=== PATIENT | female | born 1985 | race African-American/Black ===

== ENCOUNTER 2020-05-01 09:38 | Emergency (ER) | payer SELFPAY ==
--- NOTE | 2020-05-01 09:45 | EDM.PDOC ---
ED HPI GENERAL MEDICAL PROBLEM - General Chief Complaint: Gastrointestinal Problem Stated Complaint: 17 WEEKS PREG HAVING A LOT OF PAIN Time Seen by Provider: 05/01/20 10:06 Source of Information: Reports: Patient History Limitations: Reports: No Limitations - History of Present Illness INITIAL COMMENTS - FREE TEXT/NARRATIVE: 34 old female 1 para 0 17 weeks presenting this afternoon with 3 days of nausea and vomiting with suprapubic pain and mild burning with urination. Denies any fevers, chills, body aches. Denies any vaginal discharge or bleeding. Has not used any [id number] medication. Last full meal was yesterday morning. Patient's OB physician is Dr. Phan. Denies any overt sick contacts at home. Denies Rupture of membranes (denies gush of fluid) FHR :140 abdominal pain Pain Score (Numeric/FACES): 4 - Related Data Allergies Allergy/AdvReac Type Severity Reaction Status Date / Time No Known Allergies Allergy Verified 05/01/20 10:02 Home Meds: Home Meds Indomethacin 50 mg PO Q6H 2 Days #8 capsule 05/01/20 [Rx] Metoclopramide HCl [Reglan] 5 mg PO Q8HR 3 Days #6 tablet 05/01/20 [Rx] cephALEXin [Keflex] 500 mg PO Q6H 5 Days #20 cap 05/01/20 [Rx] ED ROS GENERAL - Review of Systems Review Of Systems: See Below Constitutional: Denies: Fever, Chills HEENT: Reports: No Symptoms Respiratory: Reports: No Symptoms Cardiovascular: Reports: No Symptoms. Denies: Chest Pain Endocrine: Denies: No Symptoms GI/Abdominal: Reports: Abdominal Pain, Nausea, Vomiting. Denies: Constipation, Diarrhea : Reports: Dysuria. Denies: Flank Pain, Frequency, Hematuria, Incontinence Musculoskeletal: Reports: No Symptoms, Muscle Stiffness Neurological: Reports: No Symptoms Psychiatric: Reports: No Symptoms Hematologic/Lymphatic: Reports: No Symptoms ED EXAM, GI/ABD - Physical Exam Exam: See Below (FHR) General Appearance: Alert Throat/Mouth: Normal Inspection Head: Atraumatic, Normocephalic Respiratory/Chest: No Respiratory Distress, Lungs Clear, Normal Breath Sounds Cardiovascular: Normal Peripheral Pulses, Other (Mildly tachycardic; regualr rhythm ) GI/Abdominal Exam: Other (Suprapubic tenderness; no flank tenderness. Gravid belly consistent w. 17 weeks; cervix closed on examination ) Back Exam: Normal Inspection Neurological: Alert, Oriented Psychiatric: Normal Affect, Normal Mood Skin Exam: Warm, Dry, Intact Course - Vital Signs Text/Narrative:: Provided 2 Liter bolus 2 liter NS FHR: 140 UA + for l. esterase/ bacteria; initiated on Rocephin Stat US ordered to confirm gestation age Confirming +fibroids Discussed case w. solutions developer OB Dr Alaniz: mentioned since fibroids are source of pain and at 17 weeks ; is most likely to become non-viable . Recommed control for pain : tordol 60 once; send home with Indomethacin 50 q6-8 hrs PRN. Tylenol PRN q 6hrs. Reglan for Nausea control. ! gram of Rocephin given Will send home with cephelexin per on-call OB physician. Last Recorded V/S: Last Vital Signs Temp 98.8 F 05/01/20 09:56 Pulse 112 H 05/01/20 09:56 Resp 17 05/01/20 09:56 BP 119/80 05/01/20 09:56 Pulse Ox 96 05/01/20 09:56 - Orders/Labs/Meds Orders: Active Orders 24 hr Category Date Time Status OB Ltd 1 or More Fetus [US] Stat Exams 05/01/20 10:54 Taken Lactated Ringers [Ringers, Lactated] 1,000 ml Med 05/01/20 11:01 Active IV .BOLUS Medication Orders Lactated Ringer's (Ringers, Lactated) 1,000 mls @ 999 drops/hr IV .BOLUS STA Stop: 05/02/20 02:01 Last Admin: 05/01/20 11:08 Dose: 999 drops/hr Documented by: [email or web address] Labs: Laboratory Tests 05/01/20 05/01/20 05/01/20 Range/Units 10:20 10:20 10:20 WBC 12.11 H (4.0-11.0) K/uL RBC 4.52 (4.30-5.90) M/uL Hgb 11.5 L (12.0-16.0) g/dL Hct 34.5 L (36.0-46.0) % MCV 76.3 L (80.0-98.0) fL MCH 25.4 L (27.0-32.0) pg MCHC 33.3 (31.0-37.0) g/dL RDW Std Deviation 37.4 (28.0-62.0) fl RDW Coeff of Archie 13 (11.0-15.0) % Plt Count 197 (150-400) K/uL MPV 10.70 (7.40-12.00) fL Neut % (Auto) 80.0 (48.0-80.0) % Lymph % (Auto) 10.6 L (16.0-40.0) % [place] % (Auto) 9.0 (0.0-15.0) % Eos % (Auto) 0.2 (0.0-7.0) % Baso % (Auto) 0.2 (0.0-1.5) % Neut # (Auto) 9.7 H (1.4-5.7) K/uL Lymph # (Auto) 1.3 (0.6-2.4) K/uL [place] # (Auto) 1.1 H (0.0-0.8) K/uL Eos # (Auto) 0.0 (0.0-0.7) K/uL Baso # (Auto) 0.0 (0.0-0.1) K/uL Nucleated RBC % 0.0 /100WBC Nucleated RBCs # 0 K/uL Sodium 134 L (136-145) mmol/L Potassium 3.4 L (3.5-5.1) mmol/L Chloride 98 (98-107) mmol/L Carbon Dioxide 25.7 (21.0-32.0) mmol/L BUN 5 L (7.0-18.0) mg/dL Creatinine 0.7 (0.6-1.0) mg/dL Est Cr Clr Drug Dosing 103.82 mL/min Estimated GFR (MDRD) > 60.0 ml/min Glucose 112 H (74-106) mg/dL Calcium 9.5 (8.5-10.1) mg/dL Total Bilirubin 0.8 (0.2-1.0) mg/dL AST 24 (15-37) IU/L ALT 21 (14-63) IU/L Alkaline Phosphatase 78 (46-116) U/L Total Protein 7.8 (6.4-8.2) g/dL Albumin 3.2 L (3.4-5.0) g/dL Globulin 4.6 H (2.6-4.0) g/dL Albumin/Globulin Ratio 0.7 L (0.9-1.6) Urine Color YELLOW Urine Appearance SLT CLOUDY Urine pH 6.5 (5.0-8.0) Ur Specific [place] 1.020 (1.001-1.035) Urine Protein NEGATIVE (NEGATIVE) mg/dL Urine Glucose (UA) NEGATIVE (NEGATIVE) mg/dL Urine Ketones NEGATIVE (NEGATIVE) mg/dL Urine Occult Blood LARGE H (NEGATIVE) Urine Nitrite NEGATIVE (NEGATIVE) Urine Bilirubin NEGATIVE (NEGATIVE) Urine Urobilinogen 1.0 (<2.0) EU/dL Ur Leukocyte Esterase MODERATE H (NEGATIVE) Urine RBC 90-100 (0-2/HPF) Urine WBC 3-5 (0-5/HPF) Ur Epithelial Cells FEW (NONE-FEW) Urine Bacteria FEW (NEGATIVE) Meds: Medications Generic Name Dose Route Start Last Admin Trade Name Freq PRN Reason Stop Dose Admin Lactated Ringer's 1,000 mls @ 999 drops/hr 05/01/20 11:01 05/01/20 11:08 Ringers, Lactated IV 05/02/20 02:01 999 drops/hr .BOLUS STA Administration Discontinued Medications Generic Name Dose Route Start Last Admin Trade Name Freq PRN Reason Stop Dose Admin Acetaminophen 1,000 mg 05/01/20 12:08 05/01/20 12:17 Tylenol Extra Strength PO 05/01/20 12:09 1,000 mg ONETIME ONE Administration Ceftriaxone Sodium 1 gm 05/01/20 10:48 05/01/20 11:12 Rocephin IM 05/01/20 10:49 Not Given ONETIME ONE Sodium Chloride 1,000 mls @ 999 mls/hr 05/01/20 10:08 05/01/20 10:24 Normal Saline IV 05/01/20 11:08 999 mls/hr STAT ONE Administration Sodium Chloride 1,000 mls @ 999 mls/hr 05/01/20 10:41 05/01/20 11:12 Normal Saline IV 05/01/20 11:41 Not Given STAT ONE Ceftriaxone Sodium/Dextrose 1 50 mls @ 100 mls/hr 05/01/20 10:53 05/01/20 10:55 gm/ Premix IV 05/01/20 11:22 100 mls/hr ONETIME ONE Administration Ketorolac Tromethamine 60 mg 05/01/20 12:58 05/01/20 13:10 Toradol IVPUSH 05/01/20 12:59 Not Given ONETIME ONE Ketorolac Tromethamine 60 mg 05/01/20 13:10 05/01/20 13:13 Toradol IM 05/01/20 13:11 60 mg ONETIME ONE Administration Metoclopramide HCl 5 mg 05/01/20 12:58 05/01/20 13:12 Reglan IVPUSH 05/01/20 12:59 5 mg ONETIME ONE Administration Departure - Departure Time of Disposition: 13:12 Disposition: Home, Self-Care 01 Clinical Impression: UTI (urinary tract infection), Uterine fibroids affecting - Discharge Information Prescriptions: Indomethacin 50 mg PO Q6H 2 Days #8 capsule cephALEXin [Keflex] 500 mg PO Q6H 5 Days #20 cap Metoclopramide HCl [Reglan] 5 mg PO Q8HR 3 Days #6 tablet Instructions: Urinary Tract Infection, Adult, [id number], Dehydration, Adult, [id number] Referrals: Laci Phan MD [Primary Care Provider] - Forms: ED Department Discharge Additional Instructions: The following information is given to patients seen in the emergency department who are being discharged to home. This information is to outline your options for follow-up care. We provide all patients seen in our emergency department with a follow-up referral. The need for follow-up, as well as the timing and circumstances, are variable depending upon the specifics of your emergency department visit. If you don't have a primary care physician on staff, we will provide you with a referral. We always advise you to contact your personal physician following an emergency department visit to inform them of the circumstance of the visit and for follow-up with them and/or the need for any referrals to a consulting specialist. The emergency department will also refer you to a specialist when appropriate. This referral assures that you have the opportunity for follow-up care with a specialist. All of these measure are taken in an effort to provide you with optimal care, which includes your follow-up. Under all circumstances we always encourage you to contact your private physician who remains a resource for coordinating your care. When calling for follow-up care, please make the office aware that this follow-up is from your recent emergency room visit. If for any reason you are refused follow-up, please contact the [facility] Emergency Department at and asked to speak to the emergency department charge nurse. [facility] [address] [place] [address] [facility] [address] [place] [address] Care Plan Goals: Please follow up with your OB physician in the near future. If pain becomes intolerable or you notice increasing contractions, bleeding, discharge ; return to ED immediately. Sepsis Event Note (ED) - Focused Exam Vital Signs: Vital Signs Temp Pulse Resp BP Pulse Ox 05/01/20 09:56 98.8 F 112 H 17 119/80 96 - My Orders Last 24 Hours: My Active Orders 05/01/20 10:54 OB Ltd 1 or More Fetus [US] Stat 05/01/20 11:01 Lactated Ringers [Ringers, Lactated] 1,000 ml IV .BOLUS - Assessment/Plan Last 24 Hours: My Active Orders 05/01/20 10:54 OB Ltd 1 or More Fetus [US] Stat 05/01/20 11:01 Lactated Ringers [Ringers, Lactated] 1,000 ml IV .BOLUS
[2020-05-01] MEDS ORDERED: Sodium Chloride 0.9% 1,000 ML IV ONE ×2 (10:08→10:41)
[2020-05-01] MEDS ORDERED: cefTRIAXone 1 GM Vial IM ONE (10:48)
[2020-05-01 10:49] LABS: BLOOD UREA NITROGEN,BUN 5 mg/dL (7.0-18.0); CARBON DIOXIDE,CO2 25.7 mmol/L (21.0-32.0); CHLORIDE,CL 98 mmol/L (98-107); GLUCOSE RANDOM 112 mg/dL (74-106); POTASSIUM,K 3.4 mmol/L (3.5-5.1); SODIUM,NA 134 mmol/L (136-145)
[2020-05-01] MEDS ORDERED: cefTRIAXone 1 GM in Premix Bag 1 BAG IV ONE (10:53)
[2020-05-01] MEDS ORDERED: Lactated Ringers 1,000 ML IV STA (11:01)
[2020-05-01] MEDS ORDERED: Acetaminophen 500 MG Tab PO ONE (12:08)
[2020-05-01] MEDS ORDERED: Metoclopramide 10 MG/2 ML SDV IVPUSH ONE (12:58)
[2020-05-01] MEDS ORDERED: Ketorolac 30 MG/ML SDV IVPUSH ONE (12:58)
[2020-05-01] MEDS ORDERED: Ketorolac 60 MG/2 ML SDV IM ONE (13:10)
--- NOTE | 2020-05-01 13:41 | US ---
Obstetrical ultrasound: Multiple real-time images were obtained transabdominally. Comparison: No previous study for current . Dates: Current ultrasound: WINIFRED 10/04/20, gestational age 17 weeks 5 days presentation: Breech Placenta: Anterior with no findings of placenta previa Amniotic fluid: MOLLY 10.2 cm Other findings: At least 4 fibroids are identified. Fibroids have maximal measurements of 8.2 cm, 7.7 cm, 4.3 cm in 4.8 cm Measurements: BPD: 3.73 cm - 17 weeks 3 days Head circumference: 14.38 cm - 17 weeks 4 days Abdominal circumference: 13.37 cm - 18 weeks 6 days Femur length: 2.40 cm - 17 weeks 2 days Estimated weight: 220 g (0 lbs. 8 oz. Heart rate: 169 bpm Impression: 1. Single intrauterine fetus currently breech in presentation. Dates as noted above. 2. Multiple uterine fibroids are seen. 3. No other complicating process is seen by ultrasound exam. Diagnostic code #3 This report was dictated in MDT
== END 2020-05-01 13:44 | disposition home or self-care (01) ==
LOC: MW.ED 09:38
DX: O34.12 Maternal care for benign tumor of corpus uteri, second trimester (principal); O23.42 Unspecified infection of urinary tract in pregnancy, second trimester; Z3A.17 17 weeks gestation of pregnancy
CPT/HCPCS: 36415; 76815; 80053; 81001; 85025; 96361; 96372; 96374; 96375; 99284; A9270; J0696; J1885; J2765; J7030; J7120

== ENCOUNTER 2020-09-01 18:50 | Observation (INO) | payer SELFPAY ==
[2020-09-01] MEDS ORDERED: Acetaminophen 500 MG Tab PO ONE (19:53)
[2020-09-01] MEDS ORDERED: Lactated Ringers 1,000 ML IV SCH (20:00)
[2020-09-01] MEDS: Lactated Ringers 1,000 ML IV SCH ×2 (20:18→20:54)
[2020-09-01] MEDS ORDERED: Butorphanol 1 MG/ML SDV IM ONE (21:07)
[2020-09-01] MEDS ORDERED: Promethazine 25 MG/ML SDV IM ONE (21:08)
--- NOTE | 2020-09-01 23:01 | US ---
INDICATION: contractions TECHNIQUE: Ultrasound OB pelvis transabdominal. Real-time hopkins-scale imaging of the fetus was performed as well as color Doppler and spectral Doppler analysis of the umbilical artery. COMPARISON: Obstetric ultrasound 08/18/2020 FINDINGS: Clinical Age: 35 weeks 2 days (WINIFRED 12/29/2019) based on LMP. Sonographic imaging demonstrates a single living intrauterine gestation. Fetus demonstrates a regular cardiac rate of 163 beats per minute. Fetus has a cephalic orientation. The placenta lies anterior without evidence of placenta previa. Amniotic fluid volume appears low normal. Single deepest vertical pocket: 2.8 cm. The following biometric measurements were obtained: Biparietal diameter: 8.5 centimeters corresponding to 34 weeks 3 days. Head circumference: 30.7 centimeters corresponding to 34 weeks 2 days. Abdominal circumference: 30.1 centimeters corresponding to 34 weeks 1 day. Femur length: 6.7 centimeters corresponded 34 weeks 5 days. The weight is estimated at 2391 grams, the 21st percentile. Moderate maternal right hydronephrosis. Mild maternal left hydronephrosis. Likely intramural to subserosal fibroid on the right measuring 10.7 centimeters. IMPRESSION.: 1. Single live intrauterine gestation with a clinical age of 35 weeks 2 days in vertex position. 2. Estimated weight of 2391 grams which is at the 21st percentile for age. 3. Maximal vertical pocket 2.8 centimeters. 4. Anterior placenta without perigestational bleed. Dictated by Jed Mclean MD @ Sep 01 2020 10:54PM Signed by Dr. Jed Mclean @ Sep 01 2020 11:00PM
[2020-09-01] MEDS ORDERED: Promethazine 25 MG/ML SDV ONE (23:26)
[2020-09-01] MEDS ORDERED: Butorphanol 1 MG/ML SDV ONE (23:26)
[2020-09-02] MEDS ORDERED: Butorphanol 1 MG/ML SDV IM ONE (02:57)
[2020-09-02 03:39] LABS: BLOOD UREA NITROGEN,BUN 5 mg/dL (7.0-18.0); CARBON DIOXIDE,CO2 25.1 mmol/L (21.0-32.0); CHLORIDE,CL 107 mmol/L (98-107); GLUCOSE RANDOM 98 mg/dL (74-106); POTASSIUM,K 3.6 mmol/L (3.5-5.1); SODIUM,NA 140 mmol/L (136-145)
--- NOTE | 2020-09-02 08:53 | PCM.LDHP ---
L&D History of Present Illness - General Date of Service: 09/02/20 Admit Problem/Dx: Patient Status Order with Admit Dx/Problem 09/01/20 18:45 Patient Status [ADT] Routine 09/01/20 21:05 Patient Status [ADT] Routine Admission Diagnosis/Problem Admission Diagnosis/Problem Source of Information: Patient History Limitations: Reports: No Limitations - History of Present Illness Introduction:: Patient is 35/3 week who presents again after being triaged on L&D during the day 09/01/20 for painful contractions. Received 2 doses of terbutaline and iv fluids. Has received steroids for FLM a couple weeks ago. She was feeling better and then allowed to go home. Within 3 hours returned to L&D with painful contractions. She denies vaginal bleeding. Cervix has not changed on exam, still 3 cm. Notes good movement. Denies feve or chills. Denies leakage of fluid. Pain does not correlate with the mild irregular contractions. Pain Score: 7 - Related Data Allergies/Adverse Reactions: Allergies Allergy/AdvReac Type Severity Reaction Status Date / Time No Known Allergies Allergy Verified 08/18/20 08:48 Home Medications: Home Meds Iron 1 tab PO DAILY 08/18/20 [History] Pnv No.95/Ferrous Fum/Folic AC [ Vitamin Tablet] 1 tab PO DAILY 09/01/20 [History] Past Medical History - Past Health History Medical/Surgical History: Denies Medical/Surgical History [employer] History: Reports: Other OB/BYN History: First - Patient states she is 17weeks. Social & Family History - Family History Family Medical History: Noncontributory - Tobacco Use Tobacco Use Status *Q: Never Tobacco User Second Hand Smoke Exposure: No - Recreational Drug Use Recreational Drug Use: No H&P Review of Systems - Review of Systems: Review Of Systems: See Below General: Reports: No Symptoms HEENT: Reports: No Symptoms Pulmonary: Reports: No Symptoms Cardiovascular: Reports: No Symptoms Gastrointestinal: Reports: Abdominal Pain Genitourinary: Reports: No Symptoms Musculoskeletal: Reports: No Symptoms Skin: Reports: No Symptoms Psychiatric: Reports: No Symptoms Neurological: Reports: No Symptoms Hematologic/Lymphatic: Reports: No Symptoms Immunologic: Reports: No Symptoms L&D Exam - Exam Exam: See Below - Vital Signs Weight: 63.503 kg - OB Specific Contraction Intensity: Mild Movement: Active Heart Tones: Present Heart Tones per Min: 140 Heart Rate (FHR) Variability: Moderate (6-25 bmp) - Leggett Score Leggett Score Effacement: 31-50% Leggett Score Dilation: 3-4 cm - Exam General: Alert, Oriented GI/Abdominal Exam: Normal Bowel Sounds, Soft, Non-Tender. No: Rebound Back Exam: CVA Tenderness (R). No: CVA Tenderness (L) Extremities: Pedal Edema (trace). No: Dany's Sign Skin: Warm, Dry, Intact Psychiatric: Alert, Normal Affect, Normal Mood - Patient Data Lab Results Last 24 hrs: Laboratory Results - last 24 hr 09/02/20 09/02/20 09/02/20 Range/Units 03:05 03:05 07:15 WBC 7.10 (4.0-11.0) K/uL RBC 4.24 L (4.30-5.90) M/uL Hgb 11.2 L (12.0-16.0) g/dL Hct 33.6 L (36.0-46.0) % MCV 79.2 L (80.0-98.0) fL MCH 26.4 L (27.0-32.0) pg MCHC 33.3 (31.0-37.0) g/dL RDW Std Deviation 49.1 (28.0-62.0) fl RDW Coeff of Archie 17 H (11.0-15.0) % Plt Count 132 L (150-400) K/uL MPV 10.60 (7.40-12.00) fL Neut % (Auto) 64.6 (48.0-80.0) % Lymph % (Auto) 20.3 (16.0-40.0) % [place] % (Auto) 13.5 (0.0-15.0) % Eos % (Auto) 1.5 (0.0-7.0) % Baso % (Auto) 0.1 (0.0-1.5) % Neut # (Auto) 4.6 (1.4-5.7) K/uL Lymph # (Auto) 1.4 (0.6-2.4) K/uL [place] # (Auto) 1.0 H (0.0-0.8) K/uL Eos # (Auto) 0.1 (0.0-0.7) K/uL Baso # (Auto) 0.0 (0.0-0.1) K/uL Nucleated RBC % 0.0 /100WBC Nucleated RBCs # 0 K/uL Sodium 140 (136-145) mmol/L Potassium 3.6 (3.5-5.1) mmol/L Chloride 107 (98-107) mmol/L Carbon Dioxide 25.1 (21.0-32.0) mmol/L BUN 5 L (7.0-18.0) mg/dL Creatinine 0.7 (0.6-1.0) mg/dL Est Cr Clr Drug Dosing 102.86 mL/min Estimated GFR (MDRD) > 60.0 ml/min Glucose 98 (74-106) mg/dL Calcium 8.9 (8.5-10.1) mg/dL Total Bilirubin 0.8 (0.2-1.0) mg/dL AST 18 (15-37) IU/L ALT 21 (14-63) IU/L Alkaline Phosphatase 131 H (46-116) U/L Total Protein 6.0 L (6.4-8.2) g/dL Albumin 2.4 L (3.4-5.0) g/dL Globulin 3.6 (2.6-4.0) g/dL Albumin/Globulin Ratio 0.7 L (0.9-1.6) Urine Color YELLOW Urine Appearance CLOUDY Urine pH 6.0 (5.0-8.0) Ur Specific [place] 1.010 (1.001-1.035) Urine Protein NEGATIVE (NEGATIVE) mg/dL Urine Glucose (UA) NEGATIVE (NEGATIVE) mg/dL Urine Ketones NEGATIVE (NEGATIVE) mg/dL Urine Occult Blood SMALL H (NEGATIVE) Urine Nitrite NEGATIVE (NEGATIVE) Urine Bilirubin NEGATIVE (NEGATIVE) Urine Urobilinogen 0.2 (<2.0) EU/dL Ur Leukocyte Esterase MODERATE H (NEGATIVE) Result Diagrams: 09/02/20 03:05 09/02/20 03:05 - Problem List (1) Threatened premature labor affecting , less than 37 weeks in second trimester, antepartum SNOMED Code(s): 447434644, 083859253 ICD Code: O47.02 - FALSE LABOR BEFORE 37 COMPLETED WEEKS OF GEST, SECOND TRI Status: Acute Current Visit: Yes (2) Uterine fibroids affecting SNOMED Code(s): 16397629 ICD Code: O34.10 - MATERNAL CARE FOR BENIGN TUMOR OF CORPUS UTERI, UNSP TRI; D25.9 - LEIOMYOMA OF UTERUS, UNSPECIFIED Status: Acute Current Visit: No (3) Hydronephrosis SNOMED Code(s): 44220683 ICD Code: N13.30 - UNSPECIFIED HYDRONEPHROSIS Status: Acute Current Visit: Yes Problem List Initiated/Reviewed/Updated: Yes Orders Last 24hrs: Active Orders 24 hr Category Date Time Status Patient Status [ADT] Routine ADT 09/01/20 21:05 Active Non Stress Test [RC] PER UNIT ROUTINE Care 09/01/20 19:29 Active Up ad Danay [RC] ASDIRECTED Care 09/01/20 19:29 Active Vaginal Exam [RC] Click to Edit Care 09/01/20 19:29 Active Vital Signs [RC] PER UNIT ROUTINE Care 09/01/20 19:29 Active Lactated Ringers [Ringers, Lactated] 1,000 ml Med 09/01/20 20:00 Active IV .BOLUS Lactated Ringers [Ringers, Lactated] 1,000 ml Med 09/01/20 20:00 Active IV ASDIRECTED Resuscitation Status Routine Resus Stat 09/01/20 19:29 Ordered Medication Orders Lactated Ringer's (Ringers, Lactated) 1,000 mls @ 1,000 mls/hr IV .BOLUS [facility] Last Admin: 09/01/20 20:54 Dose: 1,000 mls/hr Documented by: Infusion: 09/01/20 20:54 Dose: 1,000 mls/hr Documented by: Admin: 09/01/20 20:18 Dose: 1,000 mls/hr Documented by: JAKY Lactated Ringer's (Ringers, Lactated) 1,000 mls @ 125 mls/hr IV ASDIRECTED [facility] Assessment/Plan Comment:: 35/3 week IUP Abdominal pain Irregular contractions Uterine fibroids Hydronephrosis With observation, patient given iv fluids, stadol and phenergan. She was able to rest. Since the pain she is experiencing does not correlate with her mild contractions, sonogram was done to help rule out placental abruption or other etiology. No evidence of abruption observed. She has a large fibroid along right side of uterus and hydronephrosis. This may be more of the underlying cause of her pain. Her cervix has made no change on exam Labs reveal a normal white count, normal creatinine. UA with some blood and leuk est, no nitrites Will continue supportive measures and monitor. Dr Phan is aware of patient's status.
[2020-09-02] MEDS ORDERED: hydrOXYzine Pamoate 25 MG Cap PO ONE (09:09)
[2020-09-02] MEDS ORDERED: NIFEdipine 10 MG Cap PO ONE (12:42)
== END 2020-09-02 16:10 | disposition home or self-care (01) ==
LOC: MW.OBCHECK 18:50 → MW.OB 18:55 → MW.OBCHECK 21:05 → MW.OB 21:05
PROVIDERS: ADMIT Obstetrics & Gynecology; ATTEND Obstetrics & Gynecology
DX: O47.03 False labor before 37 completed weeks of gestation, third trimester (principal); O34.13 Maternal care for benign tumor of corpus uteri, third trimester; D25.9 Leiomyoma of uterus, unspecified; O99.891 Other specified diseases and conditions complicating pregnancy; N13.30 Unspecified hydronephrosis; Z3A.35 35 weeks gestation of pregnancy
CPT/HCPCS: 36415; 59025; 76815; 76815-26; 80053; 81003; 85025; A9270-GY; J0595; J2550; J7120

== ENCOUNTER 2020-09-28 17:13 | Inpatient (IN) | payer OTHER ==
[2020-09-28] MEDS ORDERED: Ondansetron 4 MG/2 ML SDV IVPUSH PRN (19:55)
[2020-09-28] MEDS ORDERED: Sodium Chloride 0.9% 10 ML Syringe FLUSH PRN (19:55)
[2020-09-28] MEDS ORDERED: Sodium Chloride 0.9% 2.5 ML Syringe FLUSH PRN (19:55)
[2020-09-28] MEDS ORDERED: Methylergonovine 0.2 MG/1 ML Amp IM PRN (19:55)
[2020-09-28] MEDS ORDERED: Misoprostol 200 MCG Tab PO PRN (19:55)
[2020-09-28] MEDS ORDERED: Lidocaine 1% 50 ML MDV INJECT PRN (19:55)
[2020-09-28] MEDS ORDERED: Water For Irrigation,Sterile 1,000 ML Container IRR PRN (19:55)
[2020-09-28] MEDS ORDERED: Acetaminophen 325 MG Tab PO PRN (19:55)
[2020-09-28] MEDS ORDERED: Nalbuphine 10 MG/1 ML Vial IVPUSH PRN (19:55)
[2020-09-28] MEDS ORDERED: Sodium Chloride 0.9% 10 ML SDV IV PRN (19:55)
[2020-09-28] MEDS ORDERED: Carboprost Tromethamine 250 MCG/1 ML Amp IM PRN (19:55)
[2020-09-28] MEDS ORDERED: Tranexamic Acid 1,000 MG in Sodium Chloride 0.9% 100 ML IV PRN (19:55)
[2020-09-28] MEDS ORDERED: Butorphanol 1 MG/ML SDV IVPUSH PRN (19:55)
[2020-09-28] MEDS ORDERED: Oxytocin/0.9 % Sodium Chloride 30 UNIT/500 ML BAG IV SCH ×2 (20:00→21:30)
[2020-09-28] MEDS ORDERED: Terbutaline 1 MG/ML SDV SUBCUT PRN (21:20)
[2020-09-28] MEDS ORDERED: Misoprostol 25 MCG (1/4 of 100 MCG) Tab VAG PRN ×2 (21:20)
[2020-09-28] MEDS: Lactated Ringers 1,000 ML IV SCH (21:22)
[2020-09-29] MEDS ORDERED: fentaNYL 100 MCG/2 ML SDV ONE ×2 (03:02→15:45)
[2020-09-29] MEDS ORDERED: Ropivacaine HCl/PF 0 ML ONE (03:02)
[2020-09-29] MEDS ORDERED: Ropivacaine HCl/PF 100 ML ONE (03:04)
[2020-09-29] MEDS: Lactated Ringers 1,000 ML IV SCH ×4 (03:07→20:48)
--- NOTE | 2020-09-29 03:47 | PCM.PREANE ---
Preanesthetic Assessment - Procedure Proposed Procedure: Epidural for labor analgesia. Late entry (Physical assessment and medical history at 0310) IUGR Sickle Cell trait, pt denies history of blood transfusions, hospitalizations, or symptom exacerbations. Denies surgical history - Anesthesia/Transfusion/Family Hx Anesthesia History: No Prior Anesthesia Family History of Anesthesia Reaction: No Transfusion History: No Prior Transfusion(s) - Review of Systems General: No Symptoms Pulmonary: No Symptoms Cardiovascular: No Symptoms Gastrointestinal: No Symptoms Neurological: No Symptoms Other: Reports: None - Physical Assessment Height: 1.65 m Weight: 65.771 kg ASA Class: 2 Mental Status: Alert & Oriented x3 Dentition: Reports: Normal Dentition Thyro-Mental Finger Breadths: 3 Mouth Opening Finger Breadths: 3 ROM/Head Extension: Full Lungs: Clear to Auscultation, Normal Respiratory Effort Cardiovascular: Regular Rate, Regular Rhythm - Lab Values: Laboratory Last Values WBC 7.36 K/uL (4.0-11.0) 09/28/20 21:05 RBC 4.54 M/uL (4.30-5.90) 09/28/20 21:05 Hgb 11.9 g/dL (12.0-16.0) L 09/28/20 21:05 Hct 35.9 % (36.0-46.0) L 09/28/20 21:05 MCV 79.1 fL (80.0-98.0) L 09/28/20 21:05 MCH 26.2 pg (27.0-32.0) L 09/28/20 21:05 MCHC 33.1 g/dL (31.0-37.0) 09/28/20 21:05 RDW Std Deviation 46.9 fl (28.0-62.0) 09/28/20 21:05 RDW Coeff of Archie 16 % (11.0-15.0) H 09/28/20 21:05 Plt Count 170 K/uL (150-400) 09/28/20 21:05 MPV 11.40 fL (7.40-12.00) 09/28/20 21:05 Nucleated RBC % 0.0 /100WBC 09/28/20 21:05 Nucleated RBCs # 0 K/uL 09/28/20 21:05 Membrane Rupture POSITIVE 09/28/20 19:05 SARS-CoV-2 RNA (RAQUEL) POSITIVE (NEGATIVE) H 09/28/20 19:06 Blood Type A NEGATIVE 09/28/20 21:05 Antibody Screen NEGATIVE 09/28/20 21:05 - Allergies Allergies/Adverse Reactions: Allergies Allergy/AdvReac Type Severity Reaction Status Date / Time No Known Allergies Allergy Verified 09/28/20 19:19 - Acknowledgements Anesthesia Type Planned: Epidural Pt an Appropriate Candidate for the Planned Anesthesia: Yes Alternatives and Risks of Anesthesia Discussed w Pt/Guardian: Yes Pt/Guardian Understands and Agrees with Anesthesia Plan: Yes Additional Comments: Discussed epidural risks, benefits, alternatives, procedure, maintenance, and anesthesia coverage. All questions answered and concerns addressed, consent signed with RN witness. PreAnesthesia Questionnaire - Past Health History Medical/Surgical History: Denies Medical/Surgical History PROTOZOOLOGIST History: Reports: Other OB/BYN History: First - Patient states she is 17weeks. Hematologic History: Reports: Anemia - Infectious Disease History Infectious Disease History: Reports: None - HOME MEDS Home Medications: Home Meds Iron 1 tab PO DAILY 08/18/20 [History] Pnv No.95/Ferrous Fum/Folic AC [ Vitamin Tablet] 1 tab PO DAILY 09/01/20 [History] hydrOXYzine HCL [Atarax] 25 mg PO Q6H #20 tab 09/02/20 [Rx] - CURRENT (IN HOUSE) MEDS Current Meds: Current Medications Acetaminophen (Tylenol) 650 mg PO Q4H PRN PRN Reason: mild pain and fever Butorphanol Tartrate (Stadol) 1 mg IVPUSH Q1H PRN PRN Reason: Pain Carboprost Tromethamine (Hemabate Ds) 250 mcg IM ASDIRECTED PRN PRN Reason: Post Hemorrhage Lactated Ringer's (Ringers, Lactated) 1,000 mls @ 150 mls/hr IV ASDIRECTED [facility] Last Admin: 09/29/20 03:07 Dose: 150 mls/hr Documented by: Oxytocin/Sodium Chloride (Oxytocin 30 Unit/500 Ml-Ns) 30 unit in 500 mls @ 999 mls/hr IV TITRATE [facility] Tranexamic Acid 1,000 mg/ (Sodium Chloride) 110 mls @ 660 mls/hr IV ONETIME PRN PRN Reason: Bleeding Oxytocin/Sodium Chloride (Oxytocin 30 Unit/500 Ml-Ns) 30 unit in 500 mls @ 2 mls/hr IV TITRATE [facility]; Protocol Last Titration: 09/29/20 02:25 Dose: 0 munits/min, 0 mls/hr Documented by: Lidocaine HCl (Xylocaine 1%) 50 ml INJECT ONETIME PRN PRN Reason: Laceration repair Methylergonovine Maleate (Methergine) 0.2 mg IM ASDIRECTED PRN PRN Reason: Post Hemorrhage Misoprostol (Cytotec) 200 mcg PO ONETIME PRN PRN Reason: Post Hemorrhage Misoprostol (Cytotec) 25 mcg VAG ONETIME PRN PRN Reason: Cervical Ripening Misoprostol (Cytotec) 25 mcg VAG Q4H PRN PRN Reason: Cervical Ripening Last Admin: 09/29/20 03:08 Dose: 25 mcg Documented by: Nalbuphine HCl (Nubain) 10 mg IVPUSH Q1H PRN PRN Reason: Pain (severe 7-10) Ondansetron HCl (Zofran) 4 mg IVPUSH Q4H PRN PRN Reason: Nausea/Vomiting Sodium Chloride (Saline Flush) 10 ml FLUSH ASDIRECTED PRN PRN Reason: Keep Vein Open Sodium Chloride (Saline Flush) 2.5 ml FLUSH ASDIRECTED PRN PRN Reason: Keep Vein Open Sodium Chloride (Normal Saline) 10 ml IV ASDIRECTED PRN PRN Reason: IV Use Sterile Water (Sterile Water For Irrigation) 1,000 ml IRR ASDIRECTED PRN PRN Reason: delivery Terbutaline Sulfate (Brethine) 0.25 mg SUBCUT ASDIRECTED PRN PRN Reason: Tacysystole Discontinued Medications Fentanyl (Sublimaze) Confirm Administered Dose 200 mcg .ROUTE .STK-MED ONE Stop: 09/29/20 03:03 Ropivacaine (Naropin 0.2%) Confirm Administered Dose 100 mls @ as directed .ROUTE .STK-MED ONE Stop: 09/29/20 03:03 Ropivacaine (Naropin 0.2%) Confirm Administered Dose 100 mls @ as directed .ROUTE .STK-MED ONE Stop: 09/29/20 03:05
--- NOTE | 2020-09-29 03:56 | PCM.SN.2 ---
- Free Text/Narrative Note: Anesthesia time [id number] 030- Bedside in LDR 2. Epidural requested for labor analgesia. Discussed with patient: epidural risks, benefits, alternatives, procedure, maintenance, and anesthesia coverage. All questions answered and concerns addressed. 0310- consent signed with RN witness 0315- sitting position, "time out." Sterile technique employed. Chlorhexidine prep., sterile drape, lido 1.5% 2.5ml for localization. 031- Attempt #1 at L3-4 met os, no loss of resistance, needle withdrawn. 032- Attempt #2 at L3-4 with CONCHITA with saline at 4.5 cm. Catheter threaded without resistance or paresthesias. Aspirated, barbotage of pinkish fluid noted. Catheter removed (no test dose given). 0334- Localized again, Attempt #3 at L2-3 with CONCHITA with NS at 4cm. Catheter threaded without resistance or paresthesias. Aspirated, and again barbotage of pinkish fluid noted. Catheter removed (no test dose given). Discussed PDPH possibility and symptoms to report with patient. She does still desire an epidural, and MDA has been paged to bedside for further attempts.
[2020-09-29] MEDS ORDERED: Bupivicaine/fentaNYL/NS 250 ML ONE (04:20)
[2020-09-29] MEDS ORDERED: Bupivacaine 0.25% 10 ML SDV ONE (04:22)
[2020-09-29] MEDS ORDERED: Sodium Chloride 0.9% 20 ML ONE ×2 (04:48→15:46)
[2020-09-29] MEDS ORDERED: ePHEDrine 50 MG/ML SDV ONE (04:48)
--- NOTE | 2020-09-29 05:17 | PCM.SN.2 ---
- Free Text/Narrative Note: epidural catheter placed on first attempt. L4-5 midline, full iso dress (pt with covid), sterile gloves, skin prep with chloroprep. CONCHITA at 5 cm. catheter feeds easily, no csf, paresthesia or blood, catheter secured at 12 cm, neg test dose, loaded with 7 ml of 0.25% bupivicaine. epidural solln: bupiv 0.125% bupiv with 2 mcg fent /ml, 8 ml /hr, 8 ml bolus q 8 min, No comps.
[2020-09-29] MEDS: Ampicillin 2 GM in Sodium Chloride 0.9% 100 ML IV SCH ×2 (14:40→21:24)
[2020-09-29] MEDS ORDERED: Phenylephrine 1% 10 MG/ML SDV ONE (15:36)
[2020-09-29] MEDS ORDERED: Morphine PF 10 MG/10 ML SDV ONE (15:36)
[2020-09-29] MEDS ORDERED: Acetaminophen 1,000 MG in Premix Bag 1 BAG IV ONE (15:39)
[2020-09-29] MEDS ORDERED: Oxytocin 10 Units/1 ML SDV ONE (15:40)
[2020-09-29] MEDS ORDERED: Ondansetron 4 MG/2 ML SDV ONE ×2 (15:40→17:22)
[2020-09-29] MEDS ORDERED: Metoclopramide 10 MG/2 ML SDV ONE (15:40)
[2020-09-29] MEDS ORDERED: ceFAZolin 1 GM Vial ONE (15:46)
[2020-09-29] MEDS: Clindamycin Phosphate in D5W 900 MG in Premix Bag 1 BAG IV SCH ×2 (16:25)
--- NOTE | 2020-09-29 18:34 | PCM.POSTAN ---
POST ANESTHESIA ASSESSMENT - MENTAL STATUS Mental Status: Alert - RESPIRATORY Respiratory Status: Respiratory Rate WNL - CARDIOVASCULAR CV Status: Pulse Rate WNL - GASTROINTESTINAL GI Status: No Symptoms - POST OP HYDRATION Hydration Status: Adequate & Stable
[2020-09-29] MEDS ORDERED: Methylergonovine 0.2 MG/1 ML Amp IM PRN (18:40)
[2020-09-29] MEDS ORDERED: Oxytocin 10 Units/1 ML SDV IM PRN (18:40)
[2020-09-29] MEDS ORDERED: Misoprostol 200 MCG Tab RECTAL PRN (18:40)
[2020-09-29] MEDS ORDERED: Bisacodyl 10 MG Supp RECTAL PRN (18:40)
[2020-09-29] MEDS ORDERED: Tranexamic Acid 1,000 MG in Sodium Chloride 0.9% 100 ML IV PRN (18:40)
[2020-09-29] MEDS ORDERED: Acetaminophen/oxyCODONE 325-5 MG Tab PO PRN (18:40)
[2020-09-29] MEDS ORDERED: Ibuprofen 800 MG Tab PO PRN (18:40)
[2020-09-29] MEDS ORDERED: Ondansetron 4 MG/2 ML SDV IVPUSH PRN (18:40)
[2020-09-29] MEDS ORDERED: Lanolin 100% Cream 7 GM Tube TOP PRN (18:40)
[2020-09-29] MEDS ORDERED: Oxytocin/Lactated Ringers 30 UNIT/500 ML BAG IV SCH (18:45)
--- NOTE | 2020-09-29 19:03 | PCM.OPNOTE ---
- General Post-Op/Procedure Note Date of Surgery/Procedure: 09/29/20 Operative Procedure(s): Primary lower segment section Findings: Live male delivered at 1657 , 8/9 weight 3160g Multiple fibroids felt toward the fundal and posterior aspect of the uterus Pre Op Diagnosis: 35yo @ 39w2d. Prelabor rupture of membrane. Covid positive asymptomatic. Rh negative. Chorioamnionitis. Persistent Cat 2FHRT Post-Op Diagnosis: same Anesthesia Technique: Epidural Primary Surgeon: Maggy Rodriguez Anesthesia Provider: Flavio Ndiaye Pathology: Placenta Fluid Replacement, Intraop: 1,000 Output, Urine Amount: 300 EBL in mLs: 600 Complications: None Condition: Good Free Text/Narrative:: Intake & Output 09/29/20 09/29/20 09/29/20 06:59 14:59 22:59 Output Total 300 Balance -300
[2020-09-29] MEDS: diphenhydrAMINE 50 MG/ML SDV IVPUSH PRN (19:43)
[2020-09-29] MEDS: Ketorolac 30 MG/ML SDV IVPUSH SCH (21:15)
[2020-09-29] MEDS: Docusate Sodium 100 MG Cap PO SCH (21:24)
[2020-09-30] MEDS: Clindamycin Phosphate in D5W 900 MG in Premix Bag 1 BAG IV SCH ×6 (01:38→17:15)
[2020-09-30] MEDS: Ketorolac 30 MG/ML SDV IVPUSH SCH ×4 (03:49→21:40)
[2020-09-30] MEDS: Ampicillin 2 GM in Sodium Chloride 0.9% 100 ML IV SCH ×4 (03:50→21:45)
[2020-09-30] MEDS: diphenhydrAMINE 50 MG/ML SDV IVPUSH PRN (04:02)
--- NOTE | 2020-09-30 05:47 | PCM.PNPP ---
- General Info Date of Service: 09/30/20 Subjective Update: Patient seen at bedside , she has good pain control Good output overnight Patient Normal lochia Functional Status: Reports: Pain Controlled, Tolerating Diet, Ambulating, Incentive Spirometry - Review of Systems General: Reports: No Symptoms HEENT: Reports: No Symptoms Pulmonary: Reports: No Symptoms Cardiovascular: Reports: No Symptoms Gastrointestinal: Reports: No Symptoms Genitourinary: Reports: No Symptoms Musculoskeletal: Reports: No Symptoms - General Info Date of Service: 09/30/20 - Patient Data Vital Signs - Most Recent: Last Vital Signs Temp 36.6 C 09/30/20 03:45 Pulse 78 09/30/20 03:45 Resp 17 09/30/20 03:45 BP 129/78 09/30/20 03:45 Pulse Ox 96 09/30/20 03:45 Weight - Most Recent: 65.771 kg I&O - Last 24 Hours: Intake & Output 09/29/20 09/29/20 09/30/20 14:59 22:59 06:59 Intake Total 1000 Output Total 600 Balance 400 Lab Results - Last 24 Hours: Laboratory Results - last 24 hr 09/28/20 09/29/20 09/29/20 Range/Units 21:05 17:00 20:05 Cord ABG pH 7.201 (7.18-7.38) Cord ABG Base Excess -8 (-10--2) Cord VBG pH 7.232 L (7.25-7.45) Cord VBG Base Excess -8 (-10--2) Blood Type A NEGATIVE Antibody Screen NEGATIVE Screen NEGATIVE (NEGATIVE) RhIG Candidate? YES Rhogam Indicated YES, BABY RH POS H Crossmatch See Detail Med Orders - Current: Current Medications Acetaminophen (Tylenol) 650 mg PO Q4H PRN PRN Reason: mild pain and fever Bisacodyl (Dulcolax) 10 mg RECTAL ONETIME PRN PRN Reason: Constipation Butorphanol Tartrate (Stadol) 1 mg IVPUSH Q1H PRN PRN Reason: Pain Last Admin: 09/29/20 03:57 Dose: 1 mg Documented by: Carboprost Tromethamine (Hemabate Ds) 250 mcg IM ASDIRECTED PRN PRN Reason: Post Hemorrhage Diphenhydramine HCl (Benadryl) 25 mg IVPUSH Q6H PRN PRN Reason: Itching or Nausea Last Admin: 09/30/20 04:02 Dose: 25 mg Documented by: Docusate Sodium (Colace) 100 mg PO BID [facility] Last Admin: 09/29/20 21:24 Dose: 100 mg Documented by: Emollient Ointment (Lansinoh Hpa) 0 gm TOP ASDIRECTED PRN PRN Reason: Sore Nipples Lactated Ringer's (Ringers, Lactated) 1,000 mls @ 150 mls/hr IV ASDIRECTED [facility] Last Admin: 09/29/20 15:12 Dose: 300 mls/hr Documented by: Oxytocin/Sodium Chloride (Oxytocin 30 Unit/500 Ml-Ns) 30 unit in 500 mls @ 999 mls/hr IV TITRATE [facility] Tranexamic Acid 1,000 mg/ (Sodium Chloride) 110 mls @ 660 mls/hr IV ONETIME PRN PRN Reason: Bleeding Oxytocin/Sodium Chloride (Oxytocin 30 Unit/500 Ml-Ns) 30 unit in 500 mls @ 2 mls/hr IV TITRATE [facility]; Protocol Last Titration: 09/29/20 15:35 Dose: 0 munits/min, 0 mls/hr Documented by: Ampicillin Sodium 2 gm/ Sodium (Chloride) 100 mls @ 200 mls/hr IV Q6H [facility] Last Admin: 09/30/20 03:50 Dose: 200 mls/hr Documented by: Gentamicin Sulfate 80 mg/ (Sodium Chloride) 102 mls @ 196.154 mls/hr IV Q8H [facility] Last Admin: 09/30/20 00:14 Dose: 196.154 mls/hr Documented by: Clindamycin Phosphate 900 mg/ (Premix) 50 mls @ 100 mls/hr IV Q8H [facility] Last Admin: 09/30/20 01:38 Dose: 100 mls/hr Documented by: Lactated Ringer's (Ringers, Lactated) 1,000 mls @ 125 mls/hr IV ASDIRECTED [facility] Last Admin: 09/29/20 20:48 Dose: 125 mls/hr Documented by: Oxytocin/Lactated Ringer's (Pitocin In Lr 30 Units/500 Ml) 30 unit in 500 mls @ 2 mls/hr IV TITRATE [facility]; Protocol Tranexamic Acid 1,000 mg/ (Sodium Chloride) 110 mls @ 660 mls/hr IV ONETIME PRN PRN Reason: Bleeding Ibuprofen (Motrin) 800 mg PO Q8H PRN PRN Reason: mild pain or fever Ketorolac Tromethamine (Toradol) 30 mg IVPUSH Q6H [facility] Stop: 09/30/20 19:01 Last Admin: 09/30/20 03:49 Dose: 30 mg Documented by: Lidocaine HCl (Xylocaine 1%) 50 ml INJECT ONETIME PRN PRN Reason: Laceration repair Methylergonovine Maleate (Methergine) 0.2 mg IM ASDIRECTED PRN PRN Reason: Post Hemorrhage Methylergonovine Maleate (Methergine) 0.2 mg IM ONETIME PRN PRN Reason: Excessive Vaginal Bleeding Misoprostol (Cytotec) 200 mcg PO ONETIME PRN PRN Reason: Post Hemorrhage Misoprostol (Cytotec) 1,000 mcg RECTAL ONETIME PRN PRN Reason: excessive bleeding Ondansetron HCl (Zofran) 4 mg IVPUSH Q4H PRN PRN Reason: Nausea/Vomiting Ondansetron HCl (Zofran) 4 mg IVPUSH Q4H PRN PRN Reason: Nausea/Vomiting Oxycodone/Acetaminophen (Percocet 325-5 Mg) 1 tab PO Q4H PRN PRN Reason: Pain (moderate 4-6) Oxycodone/Acetaminophen (Percocet 325-5 Mg) 2 tab PO Q4H PRN PRN Reason: Pain (moderate 4-6) Oxytocin (Pitocin) 10 unit IM ASDIRECTED PRN PRN Reason: Excessive Vaginal Bleeding Sodium Chloride (Saline Flush) 10 ml FLUSH ASDIRECTED PRN PRN Reason: Keep Vein Open Sodium Chloride (Saline Flush) 2.5 ml FLUSH ASDIRECTED PRN PRN Reason: Keep Vein Open Sodium Chloride (Normal Saline) 10 ml IV ASDIRECTED PRN PRN Reason: IV Use Sterile Water (Sterile Water For Irrigation) 1,000 ml IRR ASDIRECTED PRN PRN Reason: delivery Terbutaline Sulfate (Brethine) 0.25 mg SUBCUT ASDIRECTED PRN PRN Reason: Tacysystole Discontinued Medications Bupivacaine HCl (Sensorcaine-Mpf 0.25%) Confirm Administered Dose 10 ml .ROUTE .STK-MED ONE Stop: 09/29/20 04:23 Cefazolin Sodium (Ancef) Confirm Administered Dose 2 gm .ROUTE .STK-MED ONE Stop: 09/29/20 15:47 Ephedrine Sulfate (Ephedrine Sulfate) Confirm Administered Dose 50 mg .ROUTE .ST-MED ONE Stop: 09/29/20 04:49 Fentanyl (Sublimaze) Confirm Administered Dose 200 mcg .ROUTE .ST-MED ONE Stop: 09/29/20 03:03 Fentanyl (Sublimaze) Confirm Administered Dose 100 mcg .ROUTE .ST-MED ONE Stop: 09/29/20 15:46 Ropivacaine (Naropin 0.2%) Confirm Administered Dose 100 mls @ as directed .ROUTE .ST-MED ONE Stop: 09/29/20 03:03 Ropivacaine (Naropin 0.2%) Confirm Administered Dose 100 mls @ as directed .ROUTE .ST-MED ONE Stop: 09/29/20 03:05 Fentanyl/Bupivacaine HCl (Fentanyl/Bupivacaine/Ns 2 Mcg-0.125% 250 Ml) Confirm Administered Dose 250 mls @ as directed .ROUTE .[facility]-MED ONE Stop: 09/29/20 04:21 Sodium Chloride (Normal Saline) Confirm Administered Dose 20 mls @ as directed .ROUTE .ST-MED ONE Stop: 09/29/20 04:49 Gentamicin Sulfate 100 mg/ (Sodium Chloride) 102.5 mls @ 195.238 mls/hr IV ONETIME ONE Stop: 09/29/20 15:31 Last Admin: 09/29/20 15:07 Dose: 195.238 mls/hr Documented by: Acetaminophen 1,000 mg/ Premix 100 mls @ 400 mls/hr IV NOW ONE Stop: 09/29/20 15:53 Last Admin: 09/29/20 16:05 Dose: 400 mls/hr Documented by: Sodium Chloride (Normal Saline) Confirm Administered Dose 20 mls @ as directed .ROUTE .ST-MED ONE Stop: 09/29/20 15:47 Metoclopramide HCl (Reglan) Confirm Administered Dose 10 mg .ROUTE .STK-MED ONE Stop: 09/29/20 15:41 Misoprostol (Cytotec) 25 mcg VAG ONETIME PRN PRN Reason: Cervical Ripening Misoprostol (Cytotec) 25 mcg VAG Q4H PRN PRN Reason: Cervical Ripening Morphine Sulfate (Duramorph Pf) Confirm Administered Dose 10 mg .ROUTE .STK-MED ONE Stop: 09/29/20 15:37 Nalbuphine HCl (Nubain) 10 mg IVPUSH Q1H PRN PRN Reason: Pain (severe 7-10) Ondansetron HCl (Zofran) Confirm Administered Dose 4 mg .ROUTE .STK-MED ONE Stop: 09/29/20 15:41 Ondansetron HCl (Zofran) Confirm Administered Dose 4 mg .ROUTE .STK-MED ONE Stop: 09/29/20 17:23 Oxytocin (Pitocin) Confirm Administered Dose 20 unit .ROUTE .STK-MED ONE Stop: 09/29/20 15:41 Phenylephrine HCl (Abdullahi-Synephrine) Confirm Administered Dose 10 mg .ROUTE .STK- MED ONE Stop: 09/29/20 15:37 Tranexamic Acid (Cyklokapron) Confirm Administered Dose 1,000 mg .ROUTE .STK-MED ONE Stop: 09/29/20 17:07 - Infant Interaction Support Person: - Recovery Exam Fundal Tone: Firm Fundal Level: 1 Fingerbreadths Below Umbilicus Fundal Placement: Midline Lochia Amount: Scant Lochia Color: Rubra/Red Urinary Elimination: Indwelling Catheter - Exam General: Alert HEENT: Pupils Equal Neck: Supple Lungs: Clear to Auscultation Cardiovascular: Regular Rate, Regular Rhythm GI/Abdominal Exam: Normal Bowel Sounds Extremities: Normal Inspection Wound/Incisions: Dressing Dry and Intact - Problem List & Annotations (1) delivery delivered SNOMED Code(s): 874418896 Code(s): O82 - ENCOUNTER FOR DELIVERY WITHOUT INDICATION Status: Acute Current Visit: Yes - Problem List Review Problem List Initiated/Reviewed/Updated: Yes - My Orders Last 24 Hours: My Active Orders 09/29/20 Breakfast Regular Diet [DIET] 09/29/20 14:30 Ampicillin 2 gm Sodium Chloride 0.9% [Normal Saline] 100 ml IV Q6H 09/29/20 16:15 Clindamycin Phosphate in D5W [Cleocin in D5W] 900 mg Premix Bag 1 bag IV Q8H 09/29/20 18:40 Patient Status [ADT] Routine Ambulate [RC] PER UNIT ROUTINE Communication Order [RC] PER UNIT ROUTINE Communication Order [RC] PER UNIT ROUTINE Communication Order [RC] Per Unit Routine May Shower [RC] ASDIRECTED Notify Provider Intake and Out [RC] ASDIRECTED Notify Provider Vital Signs [RC] ASDIRECTED RT Incentive Spirometry [RC] Q2HWA Vital Signs [RC] PER UNIT ROUTINE Acetaminophen/oxyCODONE [Percocet 325-5 MG] 1 tab PO Q4H PRN Acetaminophen/oxyCODONE [Percocet 325-5 MG] 2 tab PO Q4H PRN Ibuprofen [Motrin] 800 mg PO Q8H PRN Lanolin [Lansinoh HPA] See Dose Instructions TOP ASDIRECTED PRN Methylergonovine [Methergine] 0.2 mg IM ONETIME PRN Ondansetron [Zofran] 4 mg IVPUSH Q4H PRN Oxytocin [Pitocin] 10 unit IM ASDIRECTED PRN Tranexamic Acid [Cyklokapron] 1,000 mg Sodium Chloride 0.9% [Normal Saline] 100 ml IV ONETIME bisacodyL [Dulcolax] 10 mg RECTAL ONETIME PRN diphenhydrAMINE [Benadryl] 25 mg IVPUSH Q6H PRN miSOPROStoL [Cytotec] 1,000 mcg RECTAL ONETIME PRN Assess Lochia [WOMSER] Per Unit Routine Assess Uterine Involution [WOMSER] Per Unit Routine Breast Pump [WOMSER] Per Unit Routine Peripheral IV Discontinue [OM.PC] Routine Sequential Compression Device [OM.PC] Per Unit Routine 09/29/20 18:41 Antiembolic Devices [RC] PER UNIT ROUTINE 09/29/20 18:45 Lactated Ringers [Ringers, Lactated] 1,000 ml IV ASDIRECTED Oxytocin/Lactated Ringers [Pitocin in LR 30 Units/500 ML] 30 unit in 500 ml IV TITRATE 09/29/20 19:00 Ketorolac [Toradol] 30 mg IVPUSH Q6H 09/29/20 20:05 SCREEN [BBK] Stat RH IMMUNE GLOBULIN [BBK] Stat RHIG WORKUP, [BBK] Stat 09/29/20 21:00 Docusate Sodium [Colace] 100 mg PO BID 09/29/20 23:00 Gentamicin 80 mg Sodium Chloride 0.9% [Normal Saline] 100 ml IV Q8H 09/30/20 06:00 CBC WITH MANUAL DIFF [HEME] Routine - Assessment Assessment:: 35yo P1 s/p primary for Cat 2FHT , Chorioamnionitis, Large Uterine fibroid , COVID positive ( asymptomatic) RH negative afebrile since delivery , POD1 - Plan Plan:: Pain control Discontinue parrish this AM and follow void Plans to bottle feed Incentive spirometry Regular diet Continue antibiotics for 24hrs after delivery CBC pending today RH negative with baby positive , needs rhogam
--- NOTE | 2020-09-30 07:11 | PCM48HPAN ---
Post Anesthesia Note - EVALUATION WITHIN 48HRS OF ANESTHETIC Vital Signs in Normal Range: Yes Patient Participated in Evaluation: Yes Respiratory Function Stable: Yes Airway Patent: Yes Cardiovascular Function Stable: Yes Hydration Status Stable: Yes Pain Control Satisfactory: Yes Nausea and Vomiting Control Satisfactory: Yes Mental Status Recovered: Yes Vital Signs: Last Vital Signs Temp 36.6 C 09/30/20 03:45 Pulse 88 09/30/20 07:00 Resp 19 09/30/20 07:00 BP 129/78 09/30/20 03:45 Pulse Ox 97 09/30/20 07:00
[2020-09-30] MEDS: Docusate Sodium 100 MG Cap PO SCH ×2 (09:02→21:39)
[2020-09-30] MEDS: Lactated Ringers 1,000 ML IV SCH (15:45)
[2020-09-30] MEDS ORDERED: Ketorolac 30 MG/ML SDV ONE (21:35)
[2020-10-01] MEDS: Acetaminophen/oxyCODONE 325-5 MG Tab PO PRN ×2 (01:02→10:04)
--- NOTE | 2020-10-01 07:33 | OR ---
SURGEON: LEX DODSON DATE OF PROCEDURE: 09/30/2020 PREOPERATIVE DIAGNOSES: A 35-year-old, G2, P 0-0-1-0, at 39 weeks and 2 days, admitted with pre- labor rupture of membrane. She was COVID positive, has a fibroid uterus, and also Rh negative. POSTOPERATIVE DIAGNOSES: A 35-year-old, G2, P 0-0-1-0, at 39 weeks and 2 days, admitted with pre- labor rupture of membrane. She was COVID positive, has a fibroid uterus, also Rh negative, persistent category 2 heart tracing, and chorioamnionitis. PROCEDURE: Primary lower segment section. ESTIMATED BLOOD LOSS: 200. IV FLUID: 1000. URINE OUTPUT: 300. ANESTHESIA: Epidural. NOTES AND FINDINGS: A live male delivered at 4:57 p.m. score was 8 and 9. Weight is 3160 g. BRIEF HISTORY ABOUT THE PATIENT: She was a 35-year-old, G2, P 0-0-1-0, at 39 weeks and 2 days, who came in complaining of rupture of membranes. She was about 2 cm dilated. She was started on Pitocin. The patient then had initially a slow labor progression. She made changes to like 3 cm. She was complaining of pain, epidural was done. Then, she was rechecked, and she was noted to have made change. Then, Pitocin was gradually increased. It was noted that the patient had some episodes of late deceleration, which recovered with leg positioning. At that point, the patient was noted to also have a tachycardia. She was examined. She was about 6 to 7, 90% effaced. A temperature was taken at that time and was normal. However, amp and gent were started because of prolonged rupture of membranes. Then, she was rechecked. Again, she was still about 6 to 7. At this point, a rectal temperature was taken because of persistent tachycardia. Temperature was about 101. As a result, the patient was very concerned, and she was tired due to the poor labor progress and category 2 tracing, so a C- section was done. She was explained the risks, benefits, and alternatives, and permission was given to go ahead. DESCRIPTION OF PROCEDURE: The patient was taken to the operating room where epidural anesthesia was topped up. She was prepared and draped in the dorsal supine position with a leftward tilt. A Pfannenstiel skin incision was made with a scalpel, carried down to the fascia with the Bovie. The fascia was incised and extended laterally and upward. The fascia was from the rectus muscles superiorly and inferiorly. The rectus muscle was then in the midline down to the level of the pubic symphysis. The peritoneum was then entered in without any difficulty. The Robby retractor was placed without difficulty. A lower uterine segment incision was made. The fetus was in cephalic position, was brought to the level of the incision. With fundal pressure, the was delivered. The cord was clamped and cut. Cord blood gases were obtained. Placenta was delivered and manual removal. Then, the hysterectomy incision was closed in 2 layers, first layer was closed with 0 Vicryl, second layer closed with 0 Monocryl. The adnexa were inspected, noted to be normal. Fibroid uterus noted in the uterus posteriorly. The Robby was then removed. The incision was inspected, again noted to be hemostatic. The peritoneum was closed with 2-0 Vicryl. The rectus muscle was apposed in the midline with the same 2-0 Vicryl stitch. The fascia was closed with 0 Vicryl in a continuous fashion. The skin was closed with 3-0 Monocryl in a continuous fashion. The left side of the incision was noted to be bleeding, so just a simple interrupted Monocryl stitch was placed. The patient tolerated the procedure well. All instrument and pad counts were correct x2. DARCIE / ADRIAN /[id number]
--- NOTE | 2020-10-01 08:40 | PCM.PNPP ---
- General Info Date of Service: 10/01/20 Subjective Update: Patient denies fevers/chills. Pain not well controlled, but declines pain medication until friend brings food from home. Voiding spontaneously. Minimal lochia. Bottle feeding. Functional Status: Reports: Tolerating Diet, Ambulating, Urinating - Review of Systems General: Reports: No Symptoms. Denies: Fever HEENT: Reports: No Symptoms Pulmonary: Reports: No Symptoms Cardiovascular: Reports: No Symptoms Gastrointestinal: Reports: Abdominal Pain Genitourinary: Reports: No Symptoms Musculoskeletal: Reports: No Symptoms Skin: Reports: No Symptoms Neurological: Reports: No Symptoms Psychiatric: Reports: No Symptoms - Patient Data Vital Signs - Most Recent: Last Vital Signs Temp 36.9 C 10/01/20 07:30 Pulse 120 H 10/01/20 07:30 Resp 17 10/01/20 07:30 BP 122/81 10/01/20 07:30 Pulse Ox 96 10/01/20 07:30 Weight - Most Recent: 65.771 kg Lab Results - Last 24 Hours: Laboratory Results - last 24 hr 09/28/20 Range/Units 21:05 RPR Non-Reac (Non-Reac) Med Orders - Current: Current Medications Bisacodyl (Dulcolax) 10 mg RECTAL ONETIME PRN PRN Reason: Constipation Diphenhydramine HCl (Benadryl) 25 mg IVPUSH Q6H PRN PRN Reason: Itching or Nausea Last Admin: 09/30/20 04:02 Dose: 25 mg Documented by: Docusate Sodium (Colace) 100 mg PO BID [facility] Last Admin: 09/30/20 21:39 Dose: 100 mg Documented by: Emollient Ointment (Lansinoh Hpa) 0 gm TOP ASDIRECTED PRN PRN Reason: Sore Nipples Lactated Ringer's (Ringers, Lactated) 1,000 mls @ 125 mls/hr IV ASDIRECTED [facility] Last Infusion: 09/30/20 16:55 Dose: 0 mls/hr Documented by: Oxytocin/Lactated Ringer's (Pitocin In Lr 30 Units/500 Ml) 30 unit in 500 mls @ 2 mls/hr IV TITRATE STEWART; Protocol Tranexamic Acid 1,000 mg/ (Sodium Chloride) 110 mls @ 660 mls/hr IV ONETIME PRN PRN Reason: Bleeding Ibuprofen (Motrin) 800 mg PO Q8H PRN PRN Reason: mild pain or fever Methylergonovine Maleate (Methergine) 0.2 mg IM ONETIME PRN PRN Reason: Excessive Vaginal Bleeding Misoprostol (Cytotec) 1,000 mcg RECTAL ONETIME PRN PRN Reason: excessive bleeding Ondansetron HCl (Zofran) 4 mg IVPUSH Q4H PRN PRN Reason: Nausea/Vomiting Oxycodone/Acetaminophen (Percocet 325-5 Mg) 1 tab PO Q4H PRN PRN Reason: Pain (moderate 4-6) Last Admin: 10/01/20 01:02 Dose: 1 tab Documented by: Oxycodone/Acetaminophen (Percocet 325-5 Mg) 2 tab PO Q4H PRN PRN Reason: Pain (moderate 4-6) Oxytocin (Pitocin) 10 unit IM ASDIRECTED PRN PRN Reason: Excessive Vaginal Bleeding Sodium Chloride (Saline Flush) 10 ml FLUSH ASDIRECTED PRN PRN Reason: Keep Vein Open Sodium Chloride (Saline Flush) 2.5 ml FLUSH ASDIRECTED PRN PRN Reason: Keep Vein Open Sodium Chloride (Normal Saline) 10 ml IV ASDIRECTED PRN PRN Reason: IV Use Discontinued Medications Acetaminophen (Tylenol) 650 mg PO Q4H PRN PRN Reason: mild pain and fever Bupivacaine HCl (Sensorcaine-Mpf 0.25%) Confirm Administered Dose 10 ml .ROUTE .STK-MED ONE Stop: 09/29/20 04:23 Last Admin: 09/30/20 10:02 Dose: Not Given Documented by: Butorphanol Tartrate (Stadol) 1 mg IVPUSH Q1H PRN PRN Reason: Pain Last Admin: 09/29/20 03:57 Dose: 1 mg Documented by: Carboprost Tromethamine (Hemabate Ds) 250 mcg IM ASDIRECTED PRN PRN Reason: Post Hemorrhage Cefazolin Sodium (Ancef) Confirm Administered Dose 2 gm .ROUTE .STK-MED ONE Stop: 09/29/20 15:47 Ephedrine Sulfate (Ephedrine Sulfate) Confirm Administered Dose 50 mg .ROUTE .STK-MED ONE Stop: 09/29/20 04:49 Fentanyl (Sublimaze) Confirm Administered Dose 200 mcg .ROUTE .STK-MED ONE Stop: 09/29/20 03:03 Last Admin: 09/30/20 10:03 Dose: Not Given Documented by: Fentanyl (Sublimaze) Confirm Administered Dose 100 mcg .ROUTE .STK-MED ONE Stop: 09/29/20 15:46 Lactated Ringer's (Ringers, Lactated) 1,000 mls @ 150 mls/hr IV ASDIRECTED [facility] Last Admin: 09/29/20 15:12 Dose: 300 mls/hr Documented by: Oxytocin/Sodium Chloride (Oxytocin 30 Unit/500 Ml-Ns) 30 unit in 500 mls @ 999 mls/hr IV TITRATE ST[facility]ART Tranexamic Acid 1,000 mg/ (Sodium Chloride) 110 mls @ 660 mls/hr IV ONETIME PRN PRN Reason: Bleeding Oxytocin/Sodium Chloride (Oxytocin 30 Unit/500 Ml-Ns) 30 unit in 500 mls @ 2 mls/hr IV TITRATE STEWART; Protocol Last Titration: 09/29/20 15:35 Dose: 0 munits/min, 0 mls/hr Documented by: Ropivacaine (Naropin 0.2%) Confirm Administered Dose 100 mls @ as directed .ROUTE .ST-MED ONE Stop: 09/29/20 03:03 Last Admin: 09/30/20 10:03 Dose: Not Given Documented by: Ropivacaine (Naropin 0.2%) Confirm Administered Dose 100 mls @ as directed .ROUTE .ST-MED ONE Stop: 09/29/20 03:05 Last Admin: 09/30/20 10:03 Dose: Not Given Documented by: Fentanyl/Bupivacaine HCl (Fentanyl/Bupivacaine/Ns 2 Mcg-0.125% 250 Ml) Confirm Administered Dose 250 mls @ as directed .ROUTE .ST-MED ONE Stop: 09/29/20 04:21 Last Admin: 09/30/20 10:02 Dose: Not Given Documented by: Sodium Chloride (Normal Saline) Confirm Administered Dose 20 mls @ as directed .ROUTE .STK-MED ONE Stop: 09/29/20 04:49 Ampicillin Sodium 2 gm/ Sodium (Chloride) 100 mls @ 200 mls/hr IV Q6H [facility] Last Admin: 09/30/20 21:45 Dose: 200 mls/hr Documented by: Gentamicin Sulfate 100 mg/ (Sodium Chloride) 102.5 mls @ 195.238 mls/hr IV ONETIME ONE Stop: 09/29/20 15:31 Last Admin: 09/29/20 15:07 Dose: 195.238 mls/hr Documented by: Gentamicin Sulfate 80 mg/ (Sodium Chloride) 102 mls @ 196.154 mls/hr IV Q8H [facility] Last Admin: 09/30/20 16:34 Dose: 196.154 mls/hr Documented by: Acetaminophen 1,000 mg/ Premix 100 mls @ 400 mls/hr IV NOW ONE Stop: 09/29/20 15:53 Last Admin: 09/29/20 16:05 Dose: 400 mls/hr Documented by: Sodium Chloride (Normal Saline) Confirm Administered Dose 20 mls @ as directed .ROUTE .STK-MED ONE Stop: 09/29/20 15:47 Clindamycin Phosphate 900 mg/ (Premix) 50 mls @ 100 mls/hr IV Q8H [facility] Last Admin: 09/30/20 17:15 Dose: 100 mls/hr Documented by: Ketorolac Tromethamine (Toradol) 30 mg IVPUSH Q6H [facility] Stop: 09/30/20 19:01 Last Admin: 09/30/20 21:40 Dose: 30 mg Documented by: Ketorolac Tromethamine (Toradol) Confirm Administered Dose 30 mg .ROUTE .STK-MED ONE Stop: 09/30/20 21:36 Last Admin: 10/01/20 05:49 Dose: Not Given Documented by: Lidocaine HCl (Xylocaine 1%) 50 ml INJECT ONETIME PRN PRN Reason: Laceration repair Methylergonovine Maleate (Methergine) 0.2 mg IM ASDIRECTED PRN PRN Reason: Post Hemorrhage Metoclopramide HCl (Reglan) Confirm Administered Dose 10 mg .ROUTE .STK-MED ONE Stop: 09/29/20 15:41 Misoprostol (Cytotec) 200 mcg PO ONETIME PRN PRN Reason: Post Hemorrhage Misoprostol (Cytotec) 25 mcg VAG ONETIME PRN PRN Reason: Cervical Ripening Misoprostol (Cytotec) 25 mcg VAG Q4H PRN PRN Reason: Cervical Ripening Morphine Sulfate (Duramorph Pf) Confirm Administered Dose 10 mg .ROUTE .STK-MED ONE Stop: 09/29/20 15:37 Nalbuphine HCl (Nubain) 10 mg IVPUSH Q1H PRN PRN Reason: Pain (severe 7-10) Ondansetron HCl (Zofran) 4 mg IVPUSH Q4H PRN PRN Reason: Nausea/Vomiting Ondansetron HCl (Zofran) Confirm Administered Dose 4 mg .ROUTE .STK-MED ONE Stop: 09/29/20 15:41 Ondansetron HCl (Zofran) Confirm Administered Dose 4 mg .ROUTE .STK-MED ONE Stop: 09/29/20 17:23 Oxytocin (Pitocin) Confirm Administered Dose 20 unit .ROUTE .STK-MED ONE Stop: 09/29/20 15:41 Phenylephrine HCl (Abdullahi-Synephrine) Confirm Administered Dose 10 mg .ROUTE .STK-M ED ONE Stop: 09/29/20 15:37 Sterile Water (Sterile Water For Irrigation) 1,000 ml IRR ASDIRECTED PRN PRN Reason: delivery Terbutaline Sulfate (Brethine) 0.25 mg SUBCUT ASDIRECTED PRN PRN Reason: Tacysystole Tranexamic Acid (Cyklokapron) Confirm Administered Dose 1,000 mg .ROUTE .STK-MED ONE Stop: 09/29/20 17:07 - Infant Interaction Disposition, : [place] at Bedside Infant Feeding: Bottle Fed Infant Support Person: - Recovery Exam Fundal Tone: Firm Fundal Level: 1 Fingerbreadths Below Umbilicus Fundal Placement: Midline Lochia Amount: Scant Bladder Status: Voiding Urinary Elimination: Voided - Exam General: Alert, Oriented Neck: Supple Lungs: Normal Respiratory Effort GI/Abdominal Exam: Soft, Non-Tender, Distended (minimal distention) Extremities: No Pedal Edema Skin: Warm, Dry, Intact Wound/Incisions: Healing Well Neurological: No New Focal Deficit Psy/Mental Status: Alert, Normal Affect, Normal Mood - Problem List & Annotations (1) delivery delivered SNOMED Code(s): 658219915 Code(s): O82 - ENCOUNTER FOR DELIVERY WITHOUT INDICATION Status: Acute Current Visit: Yes - Problem List Review Problem List Initiated/Reviewed/Updated: Yes - My Orders Last 24 Hours: My Active Orders 10/01/20 08:25 CBC W/O DIFF,HEMOGRAM [HEME] Stat 10/01/20 08:37 Ready for Discharge [RC] PER UNIT ROUTINE - Assessment Assessment:: 35yo P1 s/p primary for Cat 2FHT , Chorioamnionitis, Large Uterine fibroid , COVID positive ( asymptomatic) RH negative afebrile since delivery , POD2 - Plan Plan:: Given mild abdominal distention and tachycardia (likely due to pain from declining medication), will obtain CBC to ensure hemoglobin not worsened. Patient desires discharge home tonight if cleared by Manager Strategy. Reviewed discharge precautions/instructions. Encouraged pain medication use. All questions answered.
[2020-10-01] MEDS: Docusate Sodium 100 MG Cap PO SCH (10:05)
== END 2020-10-01 16:31 | disposition home or self-care (01) | DRG 786 ==
LOC: MW.OBCHECK 17:13 → MW.OB 17:14 → UNDOADMOB 19:55 → INTOOBSV 19:55 → MW.OBCHECK 19:55 → MW.OB 19:55 → OBSVTOIN 19:55 → MW.OB 09-29 18:40
PROVIDERS: ADMIT Obstetrics & Gynecology; ATTEND Obstetrics & Gynecology
PROC: 10D00Z1 Extraction of Products of Conception, Low, Open Approach (ICD-10-PCS; principal; 2020-09-29)
PROC: 3E0R3BZ Introduction of Anesthetic Agent into Spinal Canal, Percutaneous Approach (ICD-10-PCS; 2020-09-29)
DX: O42.92 Full-term premature rupture of membranes, unspecified as to length of time between rupture and onset of labor (principal); U07.1 COVID-19; O41.1230 Chorioamnionitis, third trimester, not applicable or unspecified; O98.52 Other viral diseases complicating childbirth; O36.5930 Maternal care for other known or suspected poor fetal growth, third trimester, not applicable or unspecified; O99.02 Anemia complicating childbirth; D64.9 Anemia, unspecified; O34.13 Maternal care for benign tumor of corpus uteri, third trimester; D25.9 Leiomyoma of uterus, unspecified; O76 Abnormality in fetal heart rate and rhythm complicating labor and delivery; Z3A.39 39 weeks gestation of pregnancy; Z37.0 Single live birth
CPT/HCPCS: 01967; 01968; 36415; 51702; 59025; 82803; 84112; 85007; 85027; 85460; 86592; 86850; 86900; 86901; 86920; 86921; 86922; 88307; A9270-GY; J0131; J0290; J0595; J0690; J1200; J1580; J1885; J2270; J2370; J2405; J2590; J2765; J2792; J3010; J3490; J7050; J7120; U0002

== ENCOUNTER 2021-07-13 22:50 | Emergency (ER) | payer OTHER ==
--- NOTE | 2021-07-13 23:39 | EDM.PDOC ---
ED [facility] GENERAL MEDICAL PROBLEM - General Chief Complaint: Genitourinary Problem Stated Complaint: PAIN WHILE URINATING Time Seen by Provider: 07/13/21 23:36 Source of Information: Reports: Patient History Limitations: Reports: No Limitations - History of Present Illness INITIAL COMMENTS - FREE TEXT/NARRATIVE: 35-year-old female with history of UTI presents with dysuria and urinary frequency for 3 days. She denies fever, chills, nausea, vomiting, abdominal pain. ROS: A 10-point review of systems, other than pertinent positives and negatives as stated per HPI, is otherwise negative Past medical history: No additional pertinent history Past Surgical history: No additional pertinent history Social history: No additional pertinent history Family history: No additional pertinent history PHYSICAL EXAM General: AOx4, GCS = 15, No distress HEENT: dry mucous membrane Neck: supple, no meningismus, no Kernig or Brudzinski Cardiac: S1S2 tachycardia Respiratory: CTAB, no crackles or rales, no wheezing Abdomen: Soft, nontender, no rebound or guarding, nondistended, no pulsatile mass. Back: nontender Musculoskeletal: NVI distally, no deformity Neuro: No focal deficits, CN 2 - 12 WNL. flank Pain Score (Numeric/FACES): 9 - Related Data Allergies Allergy/AdvReac Type Severity Reaction Status Date / Time No Known Allergies Allergy Verified 07/13/21 23:20 Home Meds: Home Meds Iron 1 tab PO DAILY 08/18/20 [History] Pnv No.95/Ferrous Fum/Folic AC [ Vitamin Tablet] 1 tab PO DAILY 09/01/20 [History] hydrOXYzine HCL [Atarax] 25 mg PO Q6H #20 tab 09/02/20 [Rx] Docusate Sodium [Colace] 100 mg PO BID PRN #60 cap 10/01/20 [Rx] Ibuprofen 800 mg PO Q8H #60 tablet 10/01/20 [Rx] oxyCODONE HCl/Acetaminophen [Percocet 5-325 mg Tablet] 1 - 2 each PO Q6H PRN #25 tablet 10/01/20 [Rx] Phenazopyridine [Pyridium] 100 mg PO TID PRN #15 tab 07/13/21 [Rx] cephALEXin [Keflex] 500 mg PO Q8H #30 cap 07/13/21 [Rx] Past Medical History - Past Health History Medical/Surgical History: Denies Medical/Surgical History HEENT History: Reports: None Cardiovascular History: Reports: None Respiratory History: Reports: None Gastrointestinal History: Reports: None Genitourinary History: Reports: None 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 Musculoskeletal History: Reports: None Neurological History: Reports: None Psychiatric History: Reports: None Endocrine/Metabolic History: Reports: None Insulin Pump Model and Food Crops Farm Hand: None Hematologic History: Reports: Anemia Immunologic History: Reports: None Oncologic (Cancer) History: Reports: None Dermatologic History: Reports: None - Infectious Disease History Infectious Disease History: Reports: None - Past Surgical History Head Surgeries/Procedures: Reports: None Female Surgical History: Reports: Section Social & Family History - Family History Family Medical History: No Pertinent Family History - Caffeine Use Caffeine Use: Reports: None ED ROS GENERAL - Review of Systems Review Of Systems: See Below (see dictation) ED EXAM, GENERAL - Physical Exam Exam: See Below (see dictation) Course - Vital Signs Last Recorded V/S: Last Vital Signs Temp 97.8 F 07/13/21 23:20 Pulse 108 H 07/13/21 23:20 Resp 18 07/13/21 23:20 BP 105/83 07/13/21 23:20 Pulse Ox 97 07/13/21 23:20 - Orders/Labs/Meds Labs: Laboratory Tests 07/13/21 07/13/21 Range/Units 23:15 23:15 Urine Color YELLOW Urine Appearance CLOUDY Urine pH 6.0 (5.0-8.0) Ur Specific [place] 1.020 (1.001-1.035) Urine Protein 100 H (NEGATIVE) mg/dL Urine Glucose (UA) NEGATIVE (NEGATIVE) mg/dL Urine Ketones NEGATIVE (NEGATIVE) mg/dL Urine Occult Blood LARGE H (NEGATIVE) Urine Nitrite POSITIVE H (NEGATIVE) Urine Bilirubin NEGATIVE (NEGATIVE) Urine Urobilinogen 1.0 (<2.0) EU/dL Ur Leukocyte Esterase MODERATE H (NEGATIVE) Urine RBC 35-40 (0-2/HPF) Urine WBC 90-100 (0-5/HPF) Ur Epithelial Cells FEW (NONE-FEW) Urine Bacteria 1+ H (NEGATIVE) Urine HCG, Qual NEGATIVE (NEGATIVE) - Re-Assessments/Exams Free Text/Narrative Re-Assessment/Exam: 07/13/21 23:39 she is currently stable for discharge. I performed a repeat exam and did not appreciate new abnormal findings. Patient exhibits normal vital signs and has a normal gait on road test. I advised the patient to return to the ER for reevaluation if symptoms worsened, including fever, worsening pain, or any other worrisome symptoms. I instructed the patient to follow up with their PCP within 2-3 days. MEDICAL DECISION MAKING: I reviewed the patients past medical records, lab and radiographic findings. I discussed the case with the patient. My differential diagnosis included: UTI. Patient has no tenderness in the abdomen, I do not suspect appendicitis or acute cholecystitis. She had no tenderness to right lower quadrant or right upper quadrant. She has no fever. Departure - Departure Time of Disposition: 23:43 Disposition: Home, Self-Care 01 Condition: Good Clinical Impression: UTI, Urinary tract infectious disease - Discharge Information *PRESCRIPTION DRUG MONITORING PROGRAM REVIEWED*: Not Applicable *COPY OF PRESCRIPTION DRUG MONITORING REPORT IN PATIENT ANNA: Not Applicable Prescriptions: cephALEXin [Keflex] 500 mg PO Q8H #30 cap Phenazopyridine [Pyridium] 100 mg PO TID PRN #15 tab PRN Reason: Abdominal Pain Instructions: Urinary Tract Infection, Adult Referrals: PCP,None [Primary Care Provider] - Forms: ED Department Discharge Additional Instructions: The need for follow-up, as well as the timing and circumstances, are variable depending upon the specifics of your emergency department visit. If you don't have a primary care physician on staff, we will provide you with a referral. We always advise you to contact your personal physician following an emergency department visit to inform them of the circumstance of the visit and for follow-up with them and/or the need for any referrals to a consulting specialist. The emergency department will also refer you to a specialist when appropriate. This referral assures that you have the opportunity for follow-up care with a specialist. All of these measure are taken in an effort to provide you with optimal care, which includes your follow-up. Under all circumstances we always encourage you to contact your private physician who remains a resource for coordinating your care. When calling for follow-up care, please make the office aware that this follow-up is from your recent emergency room visit. If for any reason you are refused follow-up, please contact the [facility] Emergency Department at and asked to speak to the emergency department charge nurse. If you do not have a primary care doctor, please follow up with the clinics below within 3-5 days. [facility] - Primary Care [address] [place] [id number] [facility] [address] [place] [id number] Sepsis Event Note (ED) - Focused Exam Vital Signs: Vital Signs Temp Pulse Resp BP Pulse Ox 07/13/21 23:20 97.8 F 108 H 18 105/83 97
[2021-07-13] MEDS ORDERED: Ketorolac 30 MG/ML SDV IM STA (23:47)
== END 2021-07-14 | disposition home or self-care (01) ==
LOC: MW.ED 22:50
DX: N39.0 Urinary tract infection, site not specified (principal)
CPT/HCPCS: 81001; 81025; 96372; 99283; J1885

== ENCOUNTER 2023-02-21 10:27 | Inpatient (IN) | payer BC ==
[2023-02-21] MEDS ORDERED: Sodium Chloride 0.9% 2.5 ML Syringe FLUSH PRN (10:29)
[2023-02-21] MEDS ORDERED: Sodium Chloride 0.9% 10 ML Syringe FLUSH PRN (10:29)
[2023-02-21] MEDS ORDERED: ceFAZolin 1 GM in Sodium Chloride 0.9% 50 ML IV ONE ×2 (10:29→10:30)
[2023-02-21] MEDS ORDERED: Citric Acid/Sodium Citrate Solution 30 ML Cup PO ONE (10:29)
[2023-02-21] MEDS ORDERED: Sodium Chloride 0.9% 20 ML SDV IV PRN (10:29)
[2023-02-21] MEDS ORDERED: Oxytocin/0.9 % Sodium Chloride 30 UNIT/500 ML BAG IV SCH ×2 (10:30→17:15)
[2023-02-21] MEDS: Lactated Ringers 1,000 ML IV SCH ×2 (11:12→11:50)
[2023-02-21] MEDS ORDERED: Ondansetron 4 MG/2 ML SDV ONE (11:45)
[2023-02-21] MEDS ORDERED: Ketorolac 30 MG/ML SDV ONE (11:45)
[2023-02-21] MEDS ORDERED: Ropivacaine 0.5% 5 MG/ML 30 ML SDV ONE ×2 (11:45→13:31)
[2023-02-21] MEDS ORDERED: fentaNYL 100 MCG/2 ML SDV ONE (11:45)
[2023-02-21] MEDS ORDERED: Dexamethasone 4 MG/ML 5 ML MDV ONE (11:45)
[2023-02-21] MEDS ORDERED: Morphine PF 10 MG/10 ML SDV ONE (11:45)
[2023-02-21] MEDS ORDERED: Oxytocin 10 Units/1 ML SDV ONE (11:45)
[2023-02-21] MEDS ORDERED: ceFAZolin 1 GM Vial ONE (11:45)
[2023-02-21] MEDS ORDERED: Bupivacaine 0.5% 10 ML SDV ONE (13:31)
[2023-02-21] MEDS ORDERED: droPERidol 5 MG/2 ML SDV IVPUSH PRN (13:45)
[2023-02-21] MEDS ORDERED: Albuterol 0.083% 2.5 MG/3 ML Neb Soln NEB PRN (13:45)
[2023-02-21] MEDS ORDERED: Morphine 2 MG/ML SYRINGE IVPUSH PRN (13:45)
[2023-02-21] MEDS ORDERED: Metoclopramide 10 MG/2 ML SDV IVPUSH PRN (13:45)
[2023-02-21] MEDS ORDERED: HYDROmorphone 1 MG/ML Syringe IVPUSH PRN (13:45)
[2023-02-21] MEDS ORDERED: fentaNYL 50 MCG/ML SDV IVPUSH PRN (13:45)
[2023-02-21] MEDS ORDERED: Ondansetron 4 MG/2 ML SDV IVPUSH PRN ×3 (13:45→17:15)
[2023-02-21] MEDS ORDERED: fentaNYL 100 MCG/2 ML SDV IVPUSH PRN (13:45)
[2023-02-21] MEDS ORDERED: Naloxone 0.4 MG/ML SDV IVPUSH PRN (13:45)
[2023-02-21] MEDS ORDERED: Acetaminophen/oxyCODONE 325-5 MG Tab PO PRN ×2 (13:45→17:15)
[2023-02-21] MEDS ORDERED: ePHEDrine 50 MG/ML SDV IVPUSH PRN (13:45)
[2023-02-21] MEDS ORDERED: Lanolin 100% Cream 7 GM Tube TOP PRN (17:15)
[2023-02-21] MEDS ORDERED: Bisacodyl 10 MG Supp RECTAL PRN (17:15)
[2023-02-21] MEDS ORDERED: Methylergonovine 0.2 MG/1 ML Amp IM PRN (17:15)
[2023-02-21] MEDS ORDERED: Oxytocin 10 Units/1 ML SDV IM PRN (17:15)
[2023-02-21] MEDS ORDERED: Tranexamic Acid 1,000 MG in Sodium Chloride 0.9% 100 ML IV PRN (17:15)
[2023-02-21] MEDS ORDERED: diphenhydrAMINE 50 MG/ML SDV IVPUSH PRN (17:15)
[2023-02-21] MEDS ORDERED: Misoprostol 200 MCG Tab RECTAL PRN (17:15)
[2023-02-21] MEDS ORDERED: Lactated Ringers 1,000 ML IV SCH (17:15)
[2023-02-21] MEDS: diphenhydrAMINE 50 MG/ML SDV IVPUSH PRN ×2 (17:24→22:30)
[2023-02-21] MEDS: Ketorolac 30 MG/ML SDV IVPUSH SCH (19:46)
[2023-02-21] MEDS: Docusate Sodium 100 MG Cap PO SCH ×2 (19:49→21:05)
[2023-02-22] MEDS: Ketorolac 30 MG/ML SDV IVPUSH SCH ×3 (01:33→13:36)
[2023-02-22] MEDS: Docusate Sodium 100 MG Cap PO SCH ×2 (09:05→20:35)
[2023-02-22] MEDS: diphenhydrAMINE 50 MG/ML SDV IVPUSH PRN (12:36)
[2023-02-22] MEDS ORDERED: Ibuprofen 800 MG Tab PO PRN (17:45)
[2023-02-22] MEDS: Acetaminophen/oxyCODONE 325-5 MG Tab PO PRN (20:34)
[2023-02-23] MEDS: Acetaminophen/oxyCODONE 325-5 MG Tab PO PRN ×2 (04:42→11:45)
== END 2023-02-23 14:13 | disposition home or self-care (01) | DRG 540 ==
LOC: MW.OB 10:27 → OBSVTOIN 10:29 → MW.OB 10:29
PROVIDERS: ADMIT Obstetrics & Gynecology Obstetrics; ATTEND Obstetrics & Gynecology Obstetrics
PROC: 10D00Z1 Extraction of Products of Conception, Low, Open Approach (ICD-10-PCS; principal; 2023-02-21)
PROC: 3E0234Z Introduction of Serum, Toxoid and Vaccine into Muscle, Percutaneous Approach (ICD-10-PCS; 2023-02-22)
DX: O34.211 Maternal care for low transverse scar from previous cesarean delivery (principal); O26.893 Other specified pregnancy related conditions, third trimester; O99.02 Anemia complicating childbirth; D64.9 Anemia, unspecified; Z67.11 Type A blood, Rh negative; Z37.0 Single live birth; Z3A.39 39 weeks gestation of pregnancy
CPT/HCPCS: 36415; 59025; 64488; 85014; 85018; 85027; 85460; 86592; 86850; 86900; 86901; A9270-GY; J0690; J1100; J1200; J1885; J2274; J2405; J2590; J2790; J2795; J3010; J3490; J7120